=== PATIENT | female | born 1990 | race Caucasian/White ===

== ENCOUNTER 2017-11-15 12:32 | Emergency (ER) | payer OTHER ==
[2017-11-15 14:18] LABS: URINE BLOOD (Dip) POC Trace-intact (NEGATIVE); URINE GLUCOSE (Dip) POC Negative (NEGATIVE); URINE KETONES (Dip) POC 4+ (NEGATIVE); URINE LEUKOCYTE EST (Dip) POC Negative (NEGATIVE); URINE NITRITE (Dip) POC Positive (NEGATIVE); URINE TOTAL PROTEIN POC 2+ (NEGATIVE)
[2017-11-15] MEDS: LORAZEPAM 1 MG TAB PO (15:40)
== END 2017-11-15 16:13 | disposition home or self-care (01) ==
LOC: FTE 12:32 → E/R 16:13
DX: F41.9 Anxiety disorder, unspecified (principal); F91.9 Conduct disorder, unspecified
CPT/HCPCS: 81003; 81025; 82962; 93005; 99283-25